=== PATIENT | male | born 1975 | race Two or more races ===

== ENCOUNTER 2021-01-09 05:35 | Day surgery (SDC) | payer OTHER ==
[~2021-01-09 05:35] MED LIST: AMLODIPINE BESYL5 MG PO; VALSARTAN-HCTZ1 EAC3 PO
== END 2021-01-09 16:55 | disposition home or self-care (01) ==
LOC: CIR.AMB 05:35
PROVIDERS: ATTEND Urology
DX: N47.1 Phimosis (principal); Z20.822 Contact with and (suspected) exposure to COVID-19